=== PATIENT | female | born 1950 | race Caucasian/White ===

== ENCOUNTER → 2019-02-24 | Outpatient (CLI) | payer BC ==
[~2019-02-24] MED LIST: ALBIPROI INH; ALBU90OI INH; FLUC150A PO; GLUCHON PO; LEVSOD112 PO; MULVITMIND PO; OMEP20ER PO; POLY17UD PO; VALA500 PO; Vibramycin100 MG PO
[2019-02-24 11:04] LABS: Source, Urine Clean Catch
[2019-02-24 12:42] LABS: Bilirubin, Urine Neg (Neg); Blood, Urine Neg (Neg); Glucose Qualitative, Urine Neg (Neg); Ketones, Urine Neg (Neg); Leukocyte Esterase, Urine Neg (Neg); Nitrite, Urine Neg (Neg); Protein, Urine Neg (Neg); Urobilinogen, Urine NORM (Normal); pH, Urine 6.5 (5.0-8.0)
[2019-02-24 12:47] LABS: Appearance, Urine Clear (Clear); Color, Urine Yellow (P-Yellow)
== END ==
LOC: LAB 11:02 → LAB SHORT 11:02 → EDSTATUS 02-24 08:50 → LAB FUT 02-24 08:50
PROVIDERS: Physician Assistant
DX: N39.0 Urinary tract infection, site not specified (principal)
CPT/HCPCS: 81003; 87086

== ENCOUNTER → 2020-07-06 | Outpatient (CLI) | payer BC | END | disposition home or self-care (01) | LOC: LAB SHORT 18:26 → LAB 18:26 | DX: L24.4 Irritant contact dermatitis due to drugs in contact with skin (principal); L08.9 Local infection of the skin and subcutaneous tissue, unspecified | CPT/HCPCS: 87070; 87205 ==

== ENCOUNTER → 2020-07-12 | Outpatient (CLI) | payer BC | LOC: LAB SHORT 18:56 → LAB 18:56 | DX: R21 Rash and other nonspecific skin eruption (principal) | CPT/HCPCS: 87529 ==

== ENCOUNTER → 2021-05-14 | Outpatient (CLI) | payer BC | LOC: LAB SHORT 17:49 → LAB 17:49 | DX: L90.0 Lichen sclerosus et atrophicus (principal); N89.8 Other specified noninflammatory disorders of vagina; Z88.1 Allergy status to other antibiotic agents; Z88.5 Allergy status to narcotic agent; Z88.6 Allergy status to analgesic agent; Z88.8 Allergy status to other drugs, medicaments and biological substances; Z91.040 Latex allergy status | CPT/HCPCS: 87070; 87205 ==

== ENCOUNTER 2025-03-31 00:54 | Inpatient (IN) | payer MEDICARE ==
[~2025-03-31] VITALS: Ht 162.6 cm; Wt 55.2 kg
[2025-03-31] VITALS (20 sets, daily range): BP systolic 73–154; BP diastolic 55–90
[~2025-03-31 00:54] MED LIST changes: +Hair, Skin & N1 EACH PO; -MULVITMIND PO
[2025-03-31] MEDS ORDERED: Ondansetron HCl 2 MG / ML 2ML Vial ONE (01:02)
[2025-03-31] MEDS ORDERED: NS 1,000 ML IV ONE (01:09)
[2025-03-31] MEDS ORDERED: NS 1,000 ML IV SCH ×2 (01:15→02:00)
[2025-03-31 01:18] LABS: BASOPHILS ABSOLUTE AUTO 0.04 K/mm3 (0.00-0.23); BASOPHILS PERCENT AUTO 0 % (0-2); EOSINOPHILS ABSOLUTE AUTO 0.13 K/mm3 (0.00-0.68); EOSINOPHILS PERCENT AUTO 1 % (0-6); Hematocrit 39.7 % (33.0-51.0); Hemoglobin 13.0 g/dL (11.5-16.0); IMMATURE GRAN ABSOLUTE AUTO 0.08 K/mm3 (0.00-0.10); IMMATURE GRAN PERCENT AUTO 1 % (0-1); LYMPHOCYTES ABSOLUTE AUTO 6.27 K/mm3 (0.84-5.20); LYMPHOCYTES PERCENT AUTO 43 % (21-46); MONOCYTES ABSOLUTE AUTO 0.78 K/mm3 (0.16-1.47); MONOCYTES PERCENT AUTO 5 % (4-13); Mean Corpuscular HGB Conc 32.7 g/dL (31.5-36.5); Mean Corpuscular Volume 97 fL (80-100); NEUTROPHILS ABSOLUTE AUTO 7.44 K/mm3 (1.96-9.15); NEUTROPHILS PERCENT AUTO 51 % (41-73); NRBC ABSOLUTE 0.00 K/mm3 (0.00-0.02); NRBC Auto 0.0 /100 WBC (0.0-0.2); Platelet Count 321 K/mm3 (150-400); RDW Coefficient Variation 13.8 % (11.7-14.2); RDW Standard Deviation 49.1 fL (35.1-46.3)
[2025-03-31] MEDS ORDERED: Diltiazem HCl 5 MG / ML 5ML Vial IV ONE (01:20)
[2025-03-31] MEDS ORDERED: Ondansetron HCl 2 MG / ML 2ML Vial IV ONE (01:20)
[2025-03-31] MEDS ORDERED: FentaNYL Citrate 50 MCG/ML 2 ML Injection IV PRN (01:50)
[2025-03-31 02:07] LABS: Calcium, Ionized (POC) 1.05 mmol/L (1.10-1.46); Chloride (POC) 108 mmol/L (98-108); Creatinine (POC) 0.7 mg/dL (0.6-1.0); Glucose (ISTAT POC) 170 mg/dL (70-99); Hematocrit (POC) 37.0 % (36.0-46.0); Hemoglobin (POC) 12.6 g/dL (12.0-16.0); Potassium (POC) 3.6 mmol/L (3.5-5.5); Sodium (POC) 139 mmol/L (135-148); Total CO2 (POC) 19 mmol/L (21-32)
[2025-03-31 02:30] LABS: Alanine Aminotransfer (ALT/SGP 30.0 U/L (12-78); Albumin, Blood 3.4 g/dL (3.4-5.0); Albumin/Globulin Ratio 1.2 (0.8-1.8); Anion Gap 10.0 mmol/L (3-11); Aspartate Aminotrans (AST/SGOT 25.0 U/L (12-37); Bilirubin, Total 0.3 mg/dL (0.1-1.0); Blood Urea Nitrogen 15.0 mg/dL (8-24); CO2, Blood 28.0 mmol/L (21-32); Calcium, Blood 8.9 mg/dL (8.5-10.1); Chloride, Blood 104.0 mmol/L (98-108); Creatinine, Blood 0.74 mg/dL (0.40-1.00); Globulin, Blood 2.9 g/dL (2.2-4.0); Glucose, Blood 179.0 mg/dL (70-99); Magnesium, Blood 1.9 mg/dL (1.6-2.4); Phosphorus, Blood 3.3 mg/dL (2.5-4.9); Potassium, Blood 4.3 mmol/L (3.5-5.5); Sodium, Blood 138.0 mmol/L (136-145); Thyroid Stimulating Hormone 3.26 uIU/mL (0.360-4.800); Total Protein, Blood 6.3 g/dL (6.4-8.2)
[2025-03-31] MEDS ORDERED: EUTHYROX88 MC1 PO (04:00)
[2025-03-31] MEDS ORDERED: FOSAMAX70 MG PO (04:00)
[2025-03-31] MEDS ORDERED: PRED20 PO (04:00)
[2025-03-31 04:18] LABS: D-Dimer, Quantitative 0.36 mg/L FEU (0.00-0.52); Prothrombin Time Results 12.2 Sec (9.7-11.5)
[2025-03-31] MEDS ORDERED: Crestor40 MG PO (05:46)
[2025-03-31] MEDS ORDERED: Heparin Sodium 5000 Units/ML 1ML MDV IV ONE (06:40)
[2025-03-31] MEDS ORDERED: Heparin Sodium,Porcine/0.5 NS 500 ML IV SCH (06:40)
--- NOTE | 2025-03-31 07:22 | NUR ---
PT ARRIVED FROM THE ED ALERT AND ORIENTED X4. NO C/O CHEST PAIN. SBA TO BEDSIDE COMMODE. GENERALIZED WEAKNESS. AFIB ON THE MONITOR CONTROLLED HR 70-72. VITALS WNL. ON RA. TWO NURSES SKIN ASSESSMENT. PT STATES SHE FELL WHILE ON VACATION. HAS A FEW ABRASIONS IN HEALING. ON CARDIZEM DRIP AND HEPARIN DRIP STARTED THIS AM. CALL M[facility]ER[facility]OTT WITHIN REACH. PT STATES SHE HAS AN ADVANCE DIRECTIVE AT HOME. SPOUSE DANIELA IS HEALTHCARE DECISION MAKER IF PT IS UNABLE TO.
[2025-03-31 07:53] LABS: BASOPHILS ABSOLUTE AUTO 0.04 K/mm3 (0.00-0.23); BASOPHILS PERCENT AUTO 0 % (0-2); EOSINOPHILS ABSOLUTE AUTO 0.01 K/mm3 (0.00-0.68); EOSINOPHILS PERCENT AUTO 0 % (0-6); Hematocrit 36.7 % (33.0-51.0); Hemoglobin 12.0 g/dL (11.5-16.0); IMMATURE GRAN ABSOLUTE AUTO 0.07 K/mm3 (0.00-0.10); IMMATURE GRAN PERCENT AUTO 1 % (0-1); LYMPHOCYTES ABSOLUTE AUTO 1.77 K/mm3 (0.84-5.20); LYMPHOCYTES PERCENT AUTO 14 % (21-46); MONOCYTES ABSOLUTE AUTO 0.78 K/mm3 (0.16-1.47); MONOCYTES PERCENT AUTO 6 % (4-13); Mean Corpuscular HGB Conc 32.7 g/dL (31.5-36.5); Mean Corpuscular Volume 97 fL (80-100); NEUTROPHILS ABSOLUTE AUTO 10.24 K/mm3 (1.96-9.15); NEUTROPHILS PERCENT AUTO 79 % (41-73); NRBC ABSOLUTE 0.00 K/mm3 (0.00-0.02); NRBC Auto 0.0 /100 WBC (0.0-0.2); Platelet Count 277 K/mm3 (150-400); RDW Coefficient Variation 13.9 % (11.7-14.2); RDW Standard Deviation 49.5 fL (35.1-46.3)
[2025-03-31 08:15] LABS: Alanine Aminotransfer (ALT/SGP 215.0 U/L (12-78); Albumin, Blood 3.3 g/dL (3.4-5.0); Albumin/Globulin Ratio 1.2 (0.8-1.8); Anion Gap 8.0 mmol/L (3-11); Aspartate Aminotrans (AST/SGOT 245.0 U/L (12-37); Bilirubin, Total 0.5 mg/dL (0.1-1.0); Blood Urea Nitrogen 11.0 mg/dL (8-24); CO2, Blood 26.0 mmol/L (21-32); Calcium, Blood 7.6 mg/dL (8.5-10.1); Chloride, Blood 109.0 mmol/L (98-108); Creatinine, Blood 0.58 mg/dL (0.40-1.00); Globulin, Blood 2.8 g/dL (2.2-4.0); Glucose, Blood 144.0 mg/dL (70-99); Potassium, Blood 4.2 mmol/L (3.5-5.5); Sodium, Blood 139.0 mmol/L (136-145); Total Protein, Blood 6.1 g/dL (6.4-8.2)
[2025-03-31 10:51] LABS: Source, Urine Clean Catch
[2025-03-31 10:57] LABS: Bilirubin, Urine Neg (Neg); Glucose Qualitative, Urine Neg (Neg); Ketones, Urine Neg (Neg); Leukocyte Esterase, Urine Neg (Neg); Protein, Urine Neg (Neg); Specific Gravity, Urine 1.005 (1.003-1.022); Urobilinogen, Urine NORM (Normal)
[2025-03-31 11:00] LABS: Color, Urine Pale Yellow (P-Yellow)
[2025-03-31] MEDS ORDERED: Dose Adjust by Pharmacy XX STA (13:35)
--- NOTE | 2025-03-31 14:31 | NUR ---
SHIFT SUMMARY NEURO: A/O X4, CALLS APPROPRIATELY AND ABLE TO MAKE HER NEEDS KNOWN. MOVES ALL EXTERMITIES WELL. PT/OT TODAY SBA DUE TO LINES/CORDS AND ON HEPARIN GTT. PT STATES CHRONIC HEADACHES/NECK PAIN AND LOW BACK PAIN. HAS HAD PRIOR WORK UP FOR HER HEADACHES AND FACIAL NUMBNESS, NO CHANGES FROM BASELINE. CARDIAC: PT CONVERTED FROM AFIB TO SR APPROX 0530 THIS AM. CARDIZEM WAS STOPPED AFTER HR 60 ACHIEVED. PT REMAINS IN SR HR 60-70S. SBP 120-140S. SOME CHEST TENDERNESS BUT DENIES ANY SHARP OR HEAVY CHEST PAIN THIS SHIFT. CURRENTLY ON HEPARIN GTT. PLAN FOR NPO AT MIDNIGHT FOR STRESS TEST TOMORROW. EDUCATION PROVIDED ON PROCEDURE. EXTENSIVE EDUCATION PROVIDED ON AFIB/CHF. MEDIATION EDUCATION PROVIDED FOR HEPARIN. PULM: LUNGS CLEAR/DIM IN BILAT BASES. SPO2 >95% ON RA. DENIES ANY SOB. GI: ABDOMEN IS SOFT/NON TENDER. NORMOACTIVE BOWEL TONES. LAST BM 03/31. GOOD APPETITE. : CONTIENT, URINE IS CLEAR YELLOW. SBA TO [facility]. SKIN: INTACT, SOME SCATTERED ECCYMOSIS. PRIOR FALL WHILE ON VACATION IN [place]. PAIN: CHONIC NECK PAIN AND HEADACHES. TX WITH TYLENOL OFFERED ULTRAM AND PT DECLINED FOR NOW. DECLINED HEAT OR ICE APPLICATION. STATES SHE TYPICALLY TAKES IBUPROFEN NIGHTLY AND USES BIOFREEZE TO MANAGE HER PAIN. ACTIVITY: INDEPENDENT AT BASELINE, WORKED WITH PT/OT TODAY. GOOD MOBILITY BUT HIGH RISK FOR BLEEDING DUE TO HEPARIN GTT. REC SBA FOR NOW. SOCIAL: DANIELA HERE INTERMIITENTLY THROUGH OUT THE DAY, VERY SUPPORTIVE. D/C PLAN PENDING STRESS TEST TOMORROW.
--- NOTE | 2025-03-31 17:47 | NUR ---
Pt arrived to [facility] via wheelchair from p[facility], she is a/ox4, pleasant and cooperative with care, follows commands well, states she has ongoing chest pain, but believes it is from a fall she had, will be having a stress test in the am, will keep npo after mid. pt aware, oriented to room layout and call system, call light in reach.
[2025-04-01 00:09] VITALS: BP 173/87
[2025-04-01 02:27] LABS: BASOPHILS ABSOLUTE AUTO 0.05 K/mm3 (0.00-0.23); BASOPHILS PERCENT AUTO 1 % (0-2); EOSINOPHILS ABSOLUTE AUTO 0.23 K/mm3 (0.00-0.68); EOSINOPHILS PERCENT AUTO 2 % (0-6); Hematocrit 34.7 % (33.0-51.0); Hemoglobin 11.4 g/dL (11.5-16.0); IMMATURE GRAN ABSOLUTE AUTO 0.04 K/mm3 (0.00-0.10); IMMATURE GRAN PERCENT AUTO 0 % (0-1); LYMPHOCYTES ABSOLUTE AUTO 4.42 K/mm3 (0.84-5.20); LYMPHOCYTES PERCENT AUTO 40 % (21-46); MONOCYTES ABSOLUTE AUTO 0.64 K/mm3 (0.16-1.47); MONOCYTES PERCENT AUTO 6 % (4-13); Mean Corpuscular HGB Conc 32.9 g/dL (31.5-36.5); Mean Corpuscular Volume 97 fL (80-100); NEUTROPHILS ABSOLUTE AUTO 5.62 K/mm3 (1.96-9.15); NEUTROPHILS PERCENT AUTO 51 % (41-73); NRBC ABSOLUTE 0.00 K/mm3 (0.00-0.02); NRBC Auto 0.0 /100 WBC (0.0-0.2); Platelet Count 249 K/mm3 (150-400); RDW Coefficient Variation 14.1 % (11.7-14.2); RDW Standard Deviation 50.0 fL (35.1-46.3)
[2025-04-01 02:43] VITALS: BP 166/83
[2025-04-01 02:54] LABS: Alanine Aminotransfer (ALT/SGP 118.0 U/L (12-78); Albumin, Blood 2.9 g/dL (3.4-5.0); Albumin/Globulin Ratio 1.2 (0.8-1.8); Anion Gap 5.0 mmol/L (3-11); Aspartate Aminotrans (AST/SGOT 58.0 U/L (12-37); Bilirubin, Total 0.4 mg/dL (0.1-1.0); Blood Urea Nitrogen 11.0 mg/dL (8-24); CO2, Blood 29.0 mmol/L (21-32); Calcium, Blood 7.9 mg/dL (8.5-10.1); Chloride, Blood 110.0 mmol/L (98-108); Creatinine, Blood 0.67 mg/dL (0.40-1.00); Globulin, Blood 2.5 g/dL (2.2-4.0); Glucose, Blood 95.0 mg/dL (70-99); Potassium, Blood 4.1 mmol/L (3.5-5.5); Sodium, Blood 140.0 mmol/L (136-145); Total Protein, Blood 5.4 g/dL (6.4-8.2)
[2025-04-01] MEDS ORDERED: Dose Adjust by Pharmacy XX STA (03:20)
[2025-04-01 03:33] VITALS: BP 174/87
--- NOTE | 2025-04-01 03:43 | NUR ---
PT DIZZY WITH AMBULATION, RESOLVED QUICKLY WITH RETURN TO BED. CONTACTED DR. JEROME. NOTIFIED OF RISING SBP THIS SHIFT. AWAITING RETURN CALL IF NEW ORDERS.
[2025-04-01] MEDS ORDERED: Labetalol HCL 5 MG/ML 4ML Injection (Single Dose) IV PRN (05:00)
--- NOTE | 2025-04-01 06:40 | NUR ---
PT A/Ox4, SBP 140-170s, OTHER VSS ON RA. MD CONTACTED FOR DIZZINESS WITH AMBULATION AND ELEVATED SBP, NEW ORDERS RECEIVED. PT REPORTS SHE "ALWAYS GETS DIZZY THE FIRST TIME SHE GETS UP IN THE MORNING". PRN TRAMADOL GIVEN FOR CHEST PAIN WITH EXERTION AND DEEP BREATHS, PT REPORTS NO EFFICACY. NPO DIET OF MIDNIGHT. PT DENIES SOB, NAUSEA OR OTHER COMPLAINTS.
[2025-04-01 08:01] VITALS: BP 175/96
[2025-04-01] MEDS ORDERED: Fluticasone 0.05% Nasal Spray SCH (09:00)
[2025-04-01] MEDS ORDERED: HydrALAZINE HCl 20 MG / ML 1ML Vial IV PRN (09:55)
[2025-04-01] MEDS ORDERED: Ketorolac Tromethamine 15mg Vial IV ONE (11:40)
[2025-04-01 12:17] VITALS: BP 159/90
[2025-04-01] MEDS ORDERED: ROSUVASTATIN CA10 MG PO (15:37)
[2025-04-01] MEDS ORDERED: ZANAFLEX413 PO (15:37)
[2025-04-01] MEDS ORDERED: IBUP200 PO (15:38)
[2025-04-01] MEDS ORDERED: CO Q10100 MG PO (15:38)
[2025-04-01] MEDS ORDERED: ACIDOPHILUS1 EAC3 PO (15:38)
[2025-04-01] MEDS ORDERED: Vitamin D1000 UNI1 PO (15:38)
[2025-04-01 15:43] VITALS: BP 150/89
[2025-04-01] MEDS ORDERED: METO25 PO (16:34)
[2025-04-01] MEDS ORDERED: ELIQUIS5 M2 PO (16:34)
--- NOTE | 2025-04-01 17:19 | NUR ---
SHIFT SUMMARY/DISCHARGE PT DISCHARGED APPROX 1640. PT AOX4, COOPERATIVE, ABLE TO MAKE NEEDS KNOWN. PT IS SBA IN ROOM DUE TO DIZZINESS. TOLERATING MEDICATION. ON ROOM AIR, ON TELE. THIS RN WENT OVER DC PAPERWORK WITH PT AND FAMILIY MEMBER. PT TOOK HARD SCRIPT HOME FOR LAB WORK ON 04/06. BELONGINGS WENT WITH PT. PT OPTED TO AMBULATE DOWN TO CARE FOR DISCHARGE.
== END 2025-04-01 16:47 | disposition home or self-care (01) | DRG 309 ==
LOC: ER 00:54 → MEDS 04:09 → PCU 04:09 → MEDS 18:52
PROVIDERS: Emergency Medicine; Family Medicine; Student in an Organized Health Care Education/Training Program; ADMIT Student in an Organized Health Care Education/Training Program
DX: I48.0 Paroxysmal atrial fibrillation (principal); E87.20 Acidosis, unspecified; I24.89 Other forms of acute ischemic heart disease; M94.0 Chondrocostal junction syndrome [Tietze]; E03.9 Hypothyroidism, unspecified; K21.9 Gastro-esophageal reflux disease without esophagitis; R79.89 Other specified abnormal findings of blood chemistry; I10 Essential (primary) hypertension; F10.90 Alcohol use, unspecified, uncomplicated; E86.0 Dehydration; R73.9 Hyperglycemia, unspecified; E78.5 Hyperlipidemia, unspecified; D72.829 Elevated white blood cell count, unspecified; Z88.1 Allergy status to other antibiotic agents; Z88.5 Allergy status to narcotic agent; Z91.040 Latex allergy status; Z88.8 Allergy status to other drugs, medicaments and biological substances; Z79.890 Hormone replacement therapy; Z90.5 Acquired absence of kidney; Z87.891 Personal history of nicotine dependence
CPT/HCPCS: 36415; 71045; 71046; 76705; 78452; 80047; 80053; 81003; 83605; 83735; 83880; 84100; 84443; 84484; 85014; 85025; 85379; 85520; 85610; 93005; 93010; 93017; 93306; 96365; 96366; 96375; 97116; 97161; 97165; 99285-25; A9270; A9500; J0706; J1644; J1885; J2405; J2785; J3010; J7030

== ENCOUNTER 2025-05-10 08:53 | Emergency (ER) | payer MEDICARE ==
[~2025-05-10] VITALS: Ht 157.5 cm; Wt 45.4 kg
[~2025-05-10 08:53] MED LIST changes: +ACIDOPHILUS1 EAC3 PO; +CO Q10100 MG PO; +Crestor40 MG PO; +ELIQUIS5 M2 PO; +EUTHYROX88 MC1 PO; +FOSAMAX70 MG PO; +IBUP200 PO; +METO25 PO; +PRED20 PO; +ROSUVASTATIN CA10 MG PO; +Vitamin D1000 UNI1 PO; +ZANAFLEX413 PO
[2025-05-10] MEDS ORDERED: NS 1,000 ML IV SCH (09:25)
[2025-05-10 10:41] LABS: BASOPHILS ABSOLUTE AUTO 0.06 K/mm3 (0.00-0.23); BASOPHILS PERCENT AUTO 1 % (0-2); EOSINOPHILS ABSOLUTE AUTO 0.07 K/mm3 (0.00-0.68); EOSINOPHILS PERCENT AUTO 1 % (0-6); Hematocrit 43.3 % (33.0-51.0); Hemoglobin 14.4 g/dL (11.5-16.0); IMMATURE GRAN ABSOLUTE AUTO 0.02 K/mm3 (0.00-0.10); IMMATURE GRAN PERCENT AUTO 0 % (0-1); LYMPHOCYTES ABSOLUTE AUTO 1.43 K/mm3 (0.84-5.20); LYMPHOCYTES PERCENT AUTO 15 % (21-46); MONOCYTES ABSOLUTE AUTO 0.48 K/mm3 (0.16-1.47); MONOCYTES PERCENT AUTO 5 % (4-13); Mean Corpuscular HGB Conc 33.3 g/dL (31.5-36.5); Mean Corpuscular Volume 95 fL (80-100); NEUTROPHILS ABSOLUTE AUTO 7.24 K/mm3 (1.96-9.15); NEUTROPHILS PERCENT AUTO 78 % (41-73); NRBC ABSOLUTE 0.00 K/mm3 (0.00-0.02); NRBC Auto 0.0 /100 WBC (0.0-0.2); Platelet Count 256 K/mm3 (150-400); RDW Coefficient Variation 13.6 % (11.7-14.2); RDW Standard Deviation 47.2 fL (35.1-46.3)
[2025-05-10 11:08] LABS: Alanine Aminotransfer (ALT/SGP 27.0 U/L (12-78); Albumin, Blood 4.2 g/dL (3.4-5.0); Albumin/Globulin Ratio 1.4 (0.8-1.8); Anion Gap 6.0 mmol/L (3-11); Aspartate Aminotrans (AST/SGOT 23.0 U/L (12-37); Bilirubin, Total 0.8 mg/dL (0.1-1.0); Blood Urea Nitrogen 15.0 mg/dL (8-24); CO2, Blood 26.0 mmol/L (21-32); Calcium, Blood 9.4 mg/dL (8.5-10.1); Chloride, Blood 110.0 mmol/L (98-108); Creatinine, Blood 0.67 mg/dL (0.40-1.00); Globulin, Blood 3.0 g/dL (2.2-4.0); Glucose, Blood 113.0 mg/dL (70-99); Potassium, Blood 4.0 mmol/L (3.5-5.5); Sodium, Blood 138.0 mmol/L (136-145); Total Protein, Blood 7.2 g/dL (6.4-8.2)
[2025-05-10 11:36] VITALS: BP 145/80
== END 2025-05-10 11:57 | disposition home or self-care (01) ==
LOC: ER 08:53
PROVIDERS: Registered Nurse
DX: I20.9 Angina pectoris, unspecified (principal); J45.909 Unspecified asthma, uncomplicated; E03.9 Hypothyroidism, unspecified; K21.9 Gastro-esophageal reflux disease without esophagitis; Z87.891 Personal history of nicotine dependence
CPT/HCPCS: 80053; 83880; 84484; 85025; J7030